=== PATIENT | male | born 1995 | race African-American/Black ===

== ENCOUNTER 2019-10-04 15:48 | Emergency (ER) | payer OTHER ==
[~2019-10-04] VITALS: Ht 177.8 cm; Wt 115.7 kg
[2019-10-04] MEDS ORDERED: NOHOMEMEDICATIONS (15:55)
[2019-10-04] MEDS ORDERED: MOBIC7.5 MG PO (16:35)
[2019-10-04] MEDS ORDERED: NORFLEX100 MG PO (16:35)
[2019-10-04 17:00] VITALS: BP 130/80
== END 2019-10-04 17:00 | disposition home or self-care (01) ==
LOC: ER 15:48
DX: S39.012A Strain of muscle, fascia and tendon of lower back, initial encounter (principal); J45.909 Unspecified asthma, uncomplicated; Z91.048 Other nonmedicinal substance allergy status; X50.1XXA Overexertion from prolonged static or awkward postures, initial encounter; Y93.89 Activity, other specified; Y92.89 Other specified places as the place of occurrence of the external cause; Y99.8 Other external cause status